=== PATIENT | male | born 1985 | race Caucasian/White ===

== ENCOUNTER 2017-02-01 15:32 | Emergency (ER) | payer BC, OTHER ==
[2017-02-01] MEDS ORDERED: Sodium Chloride 0.9% 10 ML Syringe FLUSH PRN (15:54)
[2017-02-01] MEDS ORDERED: Ketorolac 30 MG/ML SDV IVPUSH ONE (15:56)
[2017-02-01] MEDS ORDERED: HYDROmorphone 1 MG/ML Syringe IVPUSH ONE (15:56)
[2017-02-01] MEDS ORDERED: Sodium Chloride 0.9% 1,000 ML IV SCH (16:00)
--- NOTE | 2017-02-01 16:01 | EDM.PDOC ---
ED HPI RENAL/ - General Chief Complaint: Abdominal Pain Stated Complaint: LEFT FLANK PAIN, NAUSEA Time Seen by Provider: 02/01/17 15:54 Source of Information: Reports: Patient History Limitations: Reports: No limitations - History of Present Illness INITIAL COMMENTS - FREE TEXT/NARRATIVE: The patient presents with left flank pain that started about 45 minutes ago. 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 He has nausea but no vomiting. He has never had anything like this before. He has no health problems. He has no history of kidney stones. He has no hematuria or dysuria. Timing/Duration: Reports: Minutes: (45) Location: Reports: flank (Left) Quality: Reports: stabbing Severity: severe Context: Denies: sick contact, recent surgery, recent trauma, lifting, activity/ exercise Associated Symptoms: Reports: nausea/vomiting. Denies: burning, dysuria, testicular pain, constipation - Related Data Allergies/ADRs: Allergies Allergy/AdvReac Type Severity Reaction Status Date / Time No Known Allergies Allergy Verified 02/01/17 16:11 Home Meds: Home Meds Hydrocodone/Acetaminophen [Hydrocodon-Acetaminophen 5-325] 1 - 2 each PO Q6HR PRN #5 tablet 02/01/17 [Rx] ED ROS GENERAL - Review of Systems Review Of Systems: See Below Constitutional: Reports: no symptoms HEENT: Reports: No symptoms Respiratory: Reports: no symptoms Cardiovascular: Reports: No symptoms Endocrine: Reports: no symptoms GI/Abdominal: Reports: Nausea. Denies: Abdominal pain, Vomiting : Reports: flank pain (Left) Musculoskeletal: Reports: no symptoms Skin: Reports: no symptoms Neurological: Reports: no symptoms ED EXAM, RENAL/ - Physical Exam Exam: See Below Exam Limited By: No limitations General Appearance: alert, moderate distress Ears: normal external exam Nose: normal inspection Head: atraumatic, normocephalic Neck: normal inspection Respiratory/Chest: no respiratory distress, lungs clear, normal breath sounds Cardiovascular: regular rate, rhythm, no edema, no murmur GI/Abdominal: soft, non tender, no organomegaly, no mass Back Exam: normal inspection Course - Vital Signs Last Recorded V/S: Last Vital Signs Temp 97.6 F 02/01/17 15:53 Pulse 68 02/01/17 15:53 Resp 16 02/01/17 15:53 BP 142/85 H 02/01/17 15:53 Pulse Ox 98 02/01/17 15:53 - Orders/Labs/Meds Orders: Active Orders 24 hr Category Date Time Status Peripheral IV Care [RC] . DIRECTED Care 02/01/17 15:54 Active UA W/MICROSCOPIC [URIN] Stat Lab 02/01/17 17:05 Results Sodium Chloride 0.9% [Normal Saline] 1,000 ml Med 02/01/17 16:00 Active IV ASDIRECTED Sodium Chloride 0.9% [Saline Flush] Med 02/01/17 15:54 Active 10 ml FLUSH ASDIRECTED PRN ED Antiemetic Medication Reflex [OM.PC] Stat Oth 02/01/17 15:54 Ordered Peripheral IV Insertion Adult [OM.PC] Stat Oth 02/01/17 15:54 Ordered Medication Orders Sodium Chloride (Normal Saline) 1,000 mls @ 125 mls/hr IV ASDIRECTED YENNY Last Admin: 02/01/17 16:04 Dose: 125 mls/hr Sodium Chloride (Saline Flush) 10 ml FLUSH ASDIRECTED PRN PRN Reason: Keep Vein Open Labs: Laboratory Tests 02/01/17 02/01/17 02/01/17 Range/Units 15:57 15:57 17:05 WBC 13.71 H (4.23-9.07) K/mm3 RBC 5.34 (4.63-6.08) M/mm3 Hgb 16.6 (13.7-17.5) gm/L Hct 48.9 (40.1-51.0) % MCV 91.6 (79.0-92.2) fl MCH 31.1 (25.7-32.2) pg MCHC 33.9 (32.2-35.5) g/dl RDW Std Deviation 44.9 H (35.1-43.9) fL Plt Count 243 (163-337) K/mm3 MPV 10.8 (9.4-12.3) fl Neut % (Auto) 62.7 (34.0-67.9) % Lymph % (Auto) 27.8 (21.8-53.1) % [place] % (Auto) 7.3 (5.3-12.2) % Eos % (Auto) 1.3 (0.8-7.0) Baso % (Auto) 0.5 (0.1-1.2) % Neut # 8.59 H (1.78-5.38) K/mm3 Lymph # 3.81 H (1.32-3.57) K/mm3 [place] # 1.00 H (0.30-0.82) K/mm3 Eos # 0.18 (0.04-0.54) K/mm3 Baso # 0.07 (0.01-0.08) K/mm3 Sodium 143 (136-145) mEq/L Potassium 3.4 L (3.5-5.1) mEq/L Chloride 104 (98-107) mEq/L Carbon Dioxide 28 (21-32) mEq/L Anion Gap 14.4 (5-15) BUN 14 (7-18) mg/dL Creatinine 1.2 (0.7-1.3) mg/dL Est Cr Clr Drug Dosing 96.10 mL/min Estimated GFR (MDRD) > 60 (>60) mL/min BUN/Creatinine Ratio 11.7 L (14-18) Glucose 109 H (74-106) mg/dL Calcium 9.2 (8.5-10.1) mg/dL Total Bilirubin 0.4 (0.2-1.0) mg/dL AST 20 (15-37) U/L ALT 38 (16-63) U/L Alkaline Phosphatase 72 (46-116) U/L Total Protein 7.2 (6.4-8.2) g/dl Albumin 4.3 (3.4-5.0) g/dl Globulin 2.9 gm/dL Albumin/Globulin Ratio 1.5 (1-2) Lipase 115 (73-393) U/L Urine Color Dark yellow (Yellow) Urine Appearance Slt cloudy H (Clear) Urine pH 6.0 (5.0-8.0) Ur Specific [place] > or = 1.030 (1.005-1.030) Urine Protein 1+ H (Negative) Urine Glucose (UA) Negative (Negative) Urine Ketones Negative (Negative) Urine Occult Blood 2+ H (Negative) Urine Nitrite Negative (Negative) Urine Bilirubin 1+ H (Negative) Urine Urobilinogen 0.2 (0.2-1.0) Ur Leukocyte Esterase Negative (Negative) Meds: Medications Generic Name Dose Route Start Last Admin Trade Name Freq PRN Reason Stop Dose Admin Sodium Chloride 1,000 mls @ 125 mls/hr 02/01/17 16:00 02/01/17 16:04 Normal Saline IV 125 mls/hr ASDIRECTED YENNY Administration Sodium Chloride 10 ml 02/01/17 15:54 Saline Flush FLUSH ASDIRECTED PRN Keep Vein Open Discontinued Medications Generic Name Dose Route Start Last Admin Trade Name Freq PRN Reason Stop Dose Admin Hydromorphone HCl 1 mg 02/01/17 15:56 02/01/17 16:08 Dilaudid IVPUSH 02/01/17 15:57 1 mg ONETIME ONE Administration Ketorolac Tromethamine 30 mg 02/01/17 15:56 02/01/17 16:06 Toradol IVPUSH 02/01/17 15:57 30 mg ONETIME ONE Administration Ondansetron HCl 4 mg 02/01/17 15:54 02/01/17 16:06 Zofran IVPUSH 02/01/17 15:55 4 mg ONETIME ONE Administration - Re-Assessments/Exams Free Text/Narrative Re-Assessment/Exam: 02/01/17 16:00 I ordered an IV NS at 125mL/hr, zofran 4mg IV, dilaudid 1mg IV and toradol 30mg IV. I will get a CT of his abdomen and pelvis labs, and UA. 02/01/17 17:27 His CBC and CMP look good. His CT shows slightly prominent left ureter secondary to a partially obstructing 2mm stone within the distal left ureter located approximately 1cm proximal to the UVJ. He urinated for us and he passed a small stone. He feels better. His UA shows blood but no UTI. I will discharge him home with a couple pain meds incase he has some spasms. I will also have him take some motrin. Departure - Departure Time of Disposition: 17:30 Disposition: Home, Self-Care 01 Condition: good Clinical Impression: Ureteric colic, Kidney stones Prescriptions: Hydrocodone/Acetaminophen [Hydrocodon-Acetaminophen 5-325] 1 - 2 each PO Q6HR PRN #5 tablet PRN Reason: Pain Additional Instructions: Drink plenty of fluids. Take the pain meds as needed for any more pain. You can also take some motrin or aleve. You may have a few spasms but you did pass the stone. Please return if you are worse. - My Orders Last 24 Hours: My Active Orders 02/01/17 15:54 Peripheral IV Care [RC] . DIRECTED Sodium Chloride 0.9% [Saline Flush] 10 ml FLUSH ASDIRECTED PRN ED Antiemetic Medication Reflex [OM.PC] Stat Peripheral IV Insertion Adult [OM.PC] Stat 02/01/17 16:00 Sodium Chloride 0.9% [Normal Saline] 1,000 ml IV ASDIRECTED 02/01/17 17:05 UA W/MICROSCOPIC [URIN] Stat - Assessment/Plan Last 24 Hours: My Active Orders 02/01/17 15:54 Peripheral IV Care [RC] . DIRECTED Sodium Chloride 0.9% [Saline Flush] 10 ml FLUSH ASDIRECTED PRN ED Antiemetic Medication Reflex [OM.PC] Stat Peripheral IV Insertion Adult [OM.PC] Stat 02/01/17 16:00 Sodium Chloride 0.9% [Normal Saline] 1,000 ml IV ASDIRECTED 02/01/17 17:05 UA W/MICROSCOPIC [URIN] Stat
[2017-02-01] MEDS: Ondansetron 4 MG/2 ML SDV IVPUSH ONE ×2 (16:05→16:06)
--- NOTE | 2017-02-01 16:32 | CT ---
CT abdomen and pelvis Technique: Multiple axial sections were obtained from above the kidneys inferiorly through the pubic symphysis. Intravenous and oral contrast was not utilized. Study performed as a ureteral stone protocol. Comparison: No previous study. Findings: Left ureter is slightly prominent. This is due to a small 2 mm stone partially obstructing the left ureter. This is located distally within the left ureter located approximately 1 cm proximal to the UVJ. No other abnormal calcifications are seen along the course of the ureters. No abnormal calcifications are identified within the kidneys. Visualized lower portions of the liver and spleen have an unremarkable noncontrast CT appearance. Adrenal glands show no nodule. Gallbladder shows no calcified gallstones. Pancreas is within normal limits. Aorta shows no aneurysmal dilatation. No retroperitoneal adenopathy or mesenteric abnormalities are seen. Appendix is seen which appears normal. No pelvic mass or adenopathy is seen. No free fluid or inflammatory change is seen. Bone window settings were reviewed which show spondylolytic defects at L5-S1 with no spondylolisthesis seen at this time. Small fat-containing umbilical hernia is noted. Impression: 1. Slightly prominent left ureter secondary to a partially obstructing 2 mm stone within the distal left ureter located approximately 1 cm proximal to the UVJ. 2. Other incidental findings as noted above. Diagnostic code #3
[2017-02-01 17:53] VITALS: BP 133/70
== END 2017-02-01 17:50 | disposition home or self-care (01) ==
LOC: JD.ED 15:32
DX: N20.2 Calculus of kidney with calculus of ureter (principal)
CPT/HCPCS: 36415; 74176; 80053; 81001; 83690; 85025; 96361; 96374; 96375; 99284; J1170; J1885; J2405; J7040; J7050

== ENCOUNTER 2021-01-02 10:56 | Emergency (ER) | payer OTHER ==
[2021-01-02 11:13] VITALS: BP 162/105; PULSE 72
--- NOTE | 2021-01-02 11:43 | EDM.PDOC ---
ED HPI GENERAL MEDICAL PROBLEM - General Chief Complaint: Chest Pain Stated Complaint: CHEST PAIN Time Seen by Provider: 01/02/21 11:10 Source of Information: Reports: Patient, RN Notes Reviewed History Limitations: Reports: No Limitations - History of Present Illness INITIAL COMMENTS - FREE TEXT/NARRATIVE: Patient is a 35-year-old male presenting to the emergency department after having an episode of sharp, midsternal chest pain approximately 2 hours prior to arrival to ER. He states he was standing in the office at work when the pain began. He described it as a sharp, stabbing sensation in his mid chest. He denies any shortness of breath with this, however he states that he was slightly diaphoretic. Symptoms resolved after approximately 9 minutes. 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 It was recommended they come to the ER to have blood work completed. He denies any significant cardiac history. He does occasionally have heartburn generally related to some type of food consumption. Denies any tenderness to palpation of the chest wall. He has no chest pain or shortness of breath at this time. States that overall, he is feeling well right now. - Related Data Allergies Allergy/AdvReac Type Severity Reaction Status Date / Time No Known Allergies Allergy Verified 01/02/21 11:14 Home Meds: Home Meds . [No Known Home Meds] 01/02/21 [History] Past Medical History - Past Health History Medical/Surgical History: Denies Medical/Surgical History Respiratory History: Reports: Bronchitis, Recurrent Genitourinary History: Reports: Renal Calculus Other Genitourinary History: current visit Musculoskeletal History: Reports: Fracture Other Musculoskeletal History: fracture to hand - Infectious Disease History Infectious Disease History: Reports: Chicken Pox - Past Surgical History Other Musculoskeletal Surgeries/Procedures:: knee surgery x2 with screws in Social & Family History - Family History Family Medical History: No Pertinent Family History - Tobacco Use Tobacco Use Status *Q: Current Every Day Tobacco User Years of Tobacco use: 3 Packs/Tins Daily: 0.5 - Caffeine Use Caffeine Use: Reports: Coffee, Soda, Tea - Recreational Drug Use Recreational Drug Use: No ED ROS GENERAL - Review of Systems Review Of Systems: See Below Constitutional: Reports: Diaphoresis. Denies: Fever, Chills HEENT: Reports: No Symptoms Respiratory: Reports: No Symptoms Cardiovascular: Reports: Chest Pain. Denies: Dyspnea on Exertion, Lightheadedness, Palpitations, Syncope Endocrine: Reports: No Symptoms GI/Abdominal: Reports: No Symptoms. Denies: Abdominal Pain, Nausea, Vomiting : Reports: No Symptoms Musculoskeletal: Reports: No Symptoms Skin: Reports: No Symptoms Neurological: Reports: No Symptoms Psychiatric: Reports: No Symptoms Hematologic/Lymphatic: Reports: No Symptoms Immunologic: Reports: No Symptoms ED EXAM, GENERAL - Physical Exam Exam: See Below Exam Limited By: No Limitations General Appearance: Alert, WD/WN, No Apparent Distress Respiratory/Chest: No Respiratory Distress, Lungs Clear, Normal Breath Sounds, No Accessory Muscle Use, Chest Non-Tender Cardiovascular: Normal Peripheral Pulses, Regular Rate, Rhythm, No Edema, No Gallop, No JVD, No Murmur, No Rub GI/Abdominal: Normal Bowel Sounds, Soft, Non-Tender, No Organomegaly, No Distention, No Abnormal Bruit, No Mass Back Exam: Normal Inspection, Full Range of Motion, NT Neurological: Alert, Oriented, CN II-XII Intact, Normal Cognition, Normal Gait, Normal Reflexes, No Motor/Sensory Deficits Psychiatric: Normal Affect, Normal Mood Skin Exam: Warm, Dry, Intact, Normal Color, No Rash #1 Interpretation EKG Date: 01/02/21 Time: 11:16 Rhythm: NSR Rate (Beats/Min): 73 [place]: Normal P-Wave: Present QRS: Normal ST-T: Normal QT: Normal Course - Vital Signs Last Recorded V/S: Last Vital Signs Temp 97.2 F 01/02/21 11:06 Pulse 72 01/02/21 11:06 Resp 15 01/02/21 11:06 BP 162/105 H 01/02/21 11:06 Pulse Ox 100 01/02/21 11:06 - Orders/Labs/Meds Orders: Active Orders 24 hr Category Date Time Status EKG 12 Lead [EK] Stat Ther 01/02/21 11:17 Ordered Labs: Laboratory Tests 01/02/21 01/02/21 01/02/21 Range/Units 11:45 11:45 11:45 WBC 6.82 (4.23-9.07) K/mm3 RBC 5.15 (4.63-6.08) M/mm3 Hgb 15.4 (13.7-17.5) gm/dl Hct 47.5 (40.1-51.0) % MCV 92.2 (79.0-92.2) fl MCH 29.9 (25.7-32.2) pg MCHC 32.4 (32.2-35.5) g/dl RDW Std Deviation 45.3 H (35.1-43.9) fL Plt Count 202 (163-337) K/mm3 MPV 10.2 (9.4-12.3) fl Neut % (Auto) 63.1 (34.0-67.9) % Lymph % (Auto) 27.4 (21.8-53.1) % [place] % (Auto) 7.6 (5.3-12.2) % Eos % (Auto) 1.2 (0.8-7.0) Baso % (Auto) 0.4 (0.1-1.2) % Neut # (Auto) 4.30 (1.78-5.38) K/mm3 Lymph # (Auto) 1.87 (1.32-3.57) K/mm3 [place] # (Auto) 0.52 (0.30-0.82) K/mm3 Eos # (Auto) 0.08 (0.04-0.54) K/mm3 Baso # (Auto) 0.03 (0.01-0.08) K/mm3 D-Dimer, Quantitative < 0.19 L (0.19-0.50) mg/L Sodium 143 (136-145) mEq/L Potassium 4.0 (3.5-5.1) mEq/L Chloride 106 (98-107) mEq/L Carbon Dioxide 28 (21-32) mEq/L Anion Gap 13.0 (5-15) BUN 11 (7-18) mg/dL Creatinine 1.2 (0.7-1.3) mg/dL Est Cr Clr Drug Dosing 92.51 mL/min Estimated GFR (MDRD) > 60 (>60) mL/min BUN/Creatinine Ratio 9.2 L (14-18) Glucose 92 (74-106) mg/dL Calcium 9.1 (8.5-10.1) mg/dL Total Bilirubin 0.4 (0.2-1.0) mg/dL AST 19 (15-37) U/L ALT 44 (16-63) U/L Alkaline Phosphatase 70 (46-116) U/L Troponin I < 0.017 (0.00-0.056) ng/mL Total Protein 7.2 (6.4-8.2) g/dl Albumin 3.9 (3.4-5.0) g/dl Globulin 3.3 gm/dL Albumin/Globulin Ratio 1.2 (1-2) - Re-Assessments/Exams Free Text/Narrative Re-Assessment/Exam: Patient is a 35-year-old male presenting to the emergency department with complaints of a 9-minute episode of midsternal chest pain that occurred approximately 2 hours prior to coming to the ER. He describes it as a sharp stabbing midsternal pain. The pain resolved and he has had no recurrence since. Denies any pain with deep breathing or shortness of breath. He has no significant cardiac history. I ordered a cardiac work-up including blood work, EKG, and two-view chest x-ray. 01/02/21 12:29 Hematology was grossly unremarkable. D-dimer was undetectable, troponin undetectable, EKG showed normal sinus rhythm with no acute ischemia. Chest x- ray had no acute abnormalities, however the cardiac silhouette is enlarged. He has had no recurrence of chest pain. After discussion with the patient, while he has never been diagnosed with hypertension, he states that since he was a teenager his blood pressures have always been slightly elevated. He has never been on blood pressure medications. Discussed with him that I would recommend establishing care in the clinic to possibly have an echocardiogram completed and begin treatment with blood pressure medications as needed. He was offered to have a referral sent, however he declined. States he will decide which provider to set up with and make arrangements. We will discharge him home. Discussed return precautions. Discharge instructions as documented. Departure - Departure Time of Disposition: 12:32 Disposition: Home, Self-Care 01 Condition: Good Clinical Impression: Atypical chest pain Instructions: Nonspecific Chest Pain, Adult, [id number] Referrals: PCP,None [Primary Care Provider] - Forms: ED Department Discharge Additional Instructions: You were seen in the emergency department today for evaluation after having an episode of chest pain earlier in the morning. Your work-up included blood work, an EKG of your heart, and a chest x-ray. Results of your work-up were found to be overall normal, however on chest x-ray, your heart did appear to be mildly enlarged. This can be related to a long history of untreated high blood pressure. Your cardiac enzymes were undetectable indicating that this pain did not originate from a lack of blood flow to your heart. While the exact cause of the pain is unknown, your symptoms do fit with esophageal spasm. Recommend that you establish care in the clinic with a primary care provider to discuss the possibility of having an echocardiogram completed as well as treatment of your elevated blood pressures as needed. If you experience any new or worsening symptoms of concern, or have recurrence of chest pain, please not hesitate to return to the emergency department for reevaluation. Sepsis Event Note (ED) - Evaluation Sepsis Screening Result: No Definite Risk - Focused Exam Vital Signs: Vital Signs Temp Pulse Resp BP Pulse Ox 01/02/21 11:06 97.2 F 72 15 162/105 H 100 - My Orders Last 24 Hours: My Active Orders 01/02/21 11:17 EKG 12 Lead [EK] Stat - Assessment/Plan Last 24 Hours: My Active Orders 01/02/21 11:17 EKG 12 Lead [EK] Stat
--- NOTE | 2021-01-02 12:58 | CR ---
Chest: 2 views of the chest were obtained. Comparison: No prior chest imaging is available. Heart size and mediastinum are within normal limits. Prominent epicardial fat pad is noted on the right side. Lungs are clear with no acute parenchymal change. Bony structures appear within normal limits for the patient's age. Impression: 1. Nothing acute is seen on a 2 view chest x-ray. Diagnostic code #2
== END 2021-01-02 12:50 | disposition home or self-care (01) ==
LOC: JD.ED 10:56
DX: R07.89 Other chest pain (principal); Z72.0 Tobacco use
CPT/HCPCS: 36415; 71046; 71046-26; 80053; 84484; 85025; 85379; 93005; 93010; 99283; 99285-25

== ENCOUNTER 2023-09-21 13:25 | Emergency (ER) | payer OTHER ==
[2023-09-21] MEDS ORDERED: Sodium Chloride 0.9% 10 ML Syringe FLUSH PRN (13:54)
[2023-09-21 14:03] LABS: BASOPHILS ABSOLUTE AUTO 0.1 K/mm3 (0.0-0.2); BASOPHILS PERCENT AUTO 0.7 % (0.0-1.0); EOSINOPHILS ABSOLUTE AUTO 0.1 K/mm3 (0.0-0.4); EOSINOPHILS PERCENT AUTO 0.7 % (0.0-6.0); HEMATOCRIT 44.9 % (42.0-52.0); HEMOGLOBIN 15.2 gm/dl (14.0-18.0); IMMATURE GRAN ABSOLUTE AUTO 0.06 K/mm3 (0.00-0.05); IMMATURE GRAN PERCENT AUTO 0.7 % (0.0-0.4); LYMPHOCYTES ABSOLUTE AUTO 3.3 K/mm3 (1.0-4.8); LYMPHOCYTES PERCENT AUTO 37.6 % (24.0-44.0); MEAN CORPUSCULAR HEMOGLOBIN 30.8 pg (28.0-32.0); MEAN CORPUSCULAR HGB CONC 33.9 g/dl (32.0-36.0); MEAN CORPUSCULAR VOLUME 91.1 fl (83.0-99.0); MEAN PLATELET VOLUME 10.3 fl (9.4-12.4); MONOCYTES ABSOLUTE AUTO 0.7 K/mm3 (0.0-0.8); NEUTROPHILS ABSOLUTE AUTO 4.6 K/mm3 (1.8-7.7); NEUTROPHILS PERCENT AUTO 52.3 % (41.0-71.0); PLATELET COUNT,PLT 222 K/mm3 (150-400); RED BLOOD CELL COUNT 4.93 M/mm3 (4.52-5.90); WHITE BLOOD CELL COUNT,WBC 8.82 K/mm3 (3.9-11.3)
[2023-09-21] MEDS ORDERED: Aspirin 81 MG Tab.Chew PO ONE (14:03)
[2023-09-21] MEDS ORDERED: Alum Hydrox/Mag Hydrox/Simeth 30 ML, Lidocaine 2% 15 ML PO ONE ×2 (14:17)
[2023-09-21 14:27] LABS: A/G RATIO 1.2 (1-2); ANION GAP 15.3 (5-15); BILIRUBIN TOTAL 0.5 mg/dL (0.2-1.0); C-REACTIVE PROTEIN 0.8 mg/dL (<1.0); CALCIUM 9.2 mg/dL (8.5-10.1); CREATININE 1.3 mg/dL (0.7-1.3); EST CRCL DRUG DOSING (CG) 83.74 mL/min; POTASSIUM,K 3.3 mEq/L (3.5-5.1); PROTEIN TOTAL,TP 7.3 g/dl (6.4-8.2)
[2023-09-21 16:36] VITALS: BP 122/70; PULSE 69
== END 2023-09-21 16:35 | disposition home or self-care (01) ==
LOC: JD.ED 13:25
DX: R07.89 Other chest pain (principal); F17.210 Nicotine dependence, cigarettes, uncomplicated; Z86.16 Personal history of COVID-19
CPT/HCPCS: 36415; 71046; 80053; 84484; 85025; 85379; 86140; 93005; 99285; A9270; J3490